=== PATIENT | female | born 1980 | race Caucasian/White ===

== ENCOUNTER 2022-03-29 13:12 | Outpatient (CLI) | payer OTHER, SELFPAY ==
[2022-03-29 12:33] LABS: Chloride* 104 mmol/L (96-114); Potassium* 4.4 mmol/L (3.6-5.1); Sodium* 139 mmol/L (135-149)
[2022-03-29 12:35] LABS: Cholesterol* 209 mg/dL (90-199); Creatinine* 0.6 mg/dL (0.5-1.5); Estimated Glomerular Filt Rate 116 ml/min
[2022-03-29 12:36] LABS: Blood Urea Nitrogen* 11 mg/dL (5-24); Carbon Dioxide* 29 mmol/L (20-32); Glucose* 86 mg/dL (60-115); Triglycerides* 101 mg/dL (40-149)
[2022-03-29 12:37] LABS: Calcium* 9.1 mg/dL (8.4-10.6); HDL Cholesterol* 65 mg/dL (>=50); LDL Cholesterol Calculated 124 mg/dL (<100)
== END 2022-03-29 13:13 | disposition home or self-care (01) ==
PROVIDERS: PCP Physician Assistant Medical; Visit Provider Physician Assistant Medical
DX: Z00.00 Encounter for general adult medical examination without abnormal findings (principal); E78.5 Hyperlipidemia, unspecified
CPT/HCPCS: 80048; 80061

== ENCOUNTER 2022-05-10 10:58 | Outpatient (CLI) | payer OTHER, SELFPAY ==
--- NOTE | 2022-05-10 11:00 | CRLHL7_ITS ---
For Patients: As a result of the Century Cures Act, medical imaging exams and procedure reports are released immediately into your electronic medical record. You may view this report before your referring provider. If you have questions, please contact your health care provider. INDICATION: Follow up a left-sided hydrosalpinx. Ovarian cysts. TECHNIQUE: Transabdominal and transvaginal pelvic ultrasound. COMPARISON: Pelvic ultrasound June 19, 2020. Correlation is made with an abdominopelvic CT May 22, 2020. FINDINGS: The uterus measures 7.2 x 4.8 x 6.2 cm. Normal endometrial stripe of 7 mm. No free pelvic fluid. Normal right ovary measuring 2.7 x 1.9 x 1.8 cm. Blood flow is documented in the right ovary. Normal sized left ovary measuring 3.3 x 2.1 x 2.8 cm. Dominant follicular cyst on the left measuring 1.6 x 1.6 x 1.9 cm likely physiologic. The left-sided hydrosalpinx seen previously is less evident although not absent. Prominent dilated blood vessel left adnexa nonspecific. IMPRESSION: 1. Less evident but still present left-sided hydrosalpinx. 2. Small follicular cyst left ovary. Normal uterus and right ovary. Dictated by Leonardo Evans MD @ 05/10/2022 11:55:53 AM (Electronically Signed)
== END 2022-05-10 10:59 | disposition home or self-care (01) ==
LOC: US 11:00
PROVIDERS: PCP Physician Assistant Medical; Visit Provider Physician Assistant Medical
DX: N70.11 Chronic salpingitis (principal); N83.202 Unspecified ovarian cyst, left side
CPT/HCPCS: 76830; 76856

== ENCOUNTER 2022-06-28 10:06 | Outpatient (CLI) | payer OTHER, SELFPAY ==
--- NOTE | 2022-06-28 10:15 | CRLHL7_ITS ---
For Patients: As a result of the Century Cures Act, medical imaging exams and procedure reports are released immediately into your electronic medical record. You may view this report before your referring provider. If you have questions, please contact your health care provider. BILATERAL DIGITAL SCREENING MAMMOGRAM WITH COMPUTER-AIDED DETECTION WITH TOMOSYNTHESIS CLINICAL HISTORY: Routine screening exam. COMPARISON: 06/19/2020 TECHNIQUE: Digital mammogram in CC and MLO projections including computer-aided detection (CAD) and tomosynthesis. BREAST COMPOSITION: The breasts are heterogeneously dense, which may obscure small masses. FINDINGS: RIGHT Breast: No suspicious findings. LEFT Breast: Multifocal groupings of microcalcifications are present within the lateral half of the breast, new from the prior study. Associated dense ill-defined tissue present in this location. IMPRESSION: LEFT breast calcifications/asymmetric densities. RECOMMENDATIONS: Spot compression magnification views of the calcifications in the LEFT breast in CC and ML projections. Open true lateral 2D LEFT breast also recommended in addition to spot compression CC/MLO. Ultrasound may also be recommended. BI-RADS Category 0: Incomplete: Need additional Imaging Evaluation and/or Prior Mammograms for Comparison [facility] will contact the patient for follow-up. A lay language report of this examination will be provided to the patient. Dictated by Leonidas Sands MD @ 06/28/2022 10:48:33 AM PT/Dictated by: Leonidas Sands MD @ 06/28/2022 10:48:00 AM (Electronically Signed)
== END 2022-06-28 10:07 | disposition home or self-care (01) ==
LOC: MAMMO 10:07
PROVIDERS: PCP Physician Assistant Medical; Visit Provider Physician Assistant Medical
DX: Z12.31 Encounter for screening mammogram for malignant neoplasm of breast (principal); R92.2 Inconclusive mammogram
CPT/HCPCS: 77063; 77067

== ENCOUNTER 2022-07-05 08:40 | Outpatient (CLI) | payer OTHER, SELFPAY ==
--- NOTE | 2022-07-05 08:45 | CRLHL7_ITS ---
For Patients: As a result of the Cures Act, medical imaging exams and procedure reports are released immediately into your electronic medical record. You may view this report before your referring provider. If you have questions, please contact your health care provider. LEFT DIAGNOSTIC DIGITAL MAMMOGRAM WITH COMPUTER-AIDED DETECTION AND TOMOSYNTHESIS LEFT BREAST ULTRASOUND CLINICAL HISTORY: LEFT breast microcalcifications, asymmetric breast tissue. COMPARISON: 06/19/2020 TECHNIQUE: Digital LEFT mammogram in 5 projections. Real-time ultrasound imaging of LEFT breast with imaging documentation. BREAST COMPOSITION: The breast is heterogeneously dense, which may obscure small masses. FINDINGS: Spot magnification CC and true lateral LEFT breast mammogram images submitted along with a true lateral 3D LEFT breast mammogram. Additional 3D spot-compression CC and MLO LEFT breast mammogram images of the lateral LEFT breast submitted. Innumerable foci clustered pleomorphic microcalcifications are present throughout the lateral half of the LEFT breast with associated asymmetric densities. However, there is no focal area of architectural distortion. No adenopathy. Targeted sonogram was performed of the lateral LEFT breast to assess for any dominant mass. Dense tissue is present without dominant mass. No adenopathy. IMPRESSION: Suspicious microcalcifications involving a large portion of the lateral half of the LEFT breast. RECOMMENDATION: Stereotactic biopsy. BI-RADS: Category 4. Suspicious Results and recommendations discussed with the patient. A lay language report of this examination will be provided to the patient. Dictated by Leonidas Sands MD @ 07/05/2022 9:54:57 AM CRL:mandy RD/Dictated by: Leonidas Sands MD @ 07/05/2022 9:54:00 AM (Electronically Signed)
--- NOTE | 2022-07-05 09:15 | CRLHL7_ITS ---
For Patients: As a result of the Cures Act, medical imaging exams and procedure reports are released immediately into your electronic medical record. You may view this report before your referring provider. If you have questions, please contact your health care provider. SEE LEFT DIAGNOSTIC MAMMOGRAM OF SAME DAY FOR COMBINED REPORT. CRL:mandy RD/Dictated by: Leonidas Sands MD @ 07/05/2022 9:55:00 AM (Electronically Signed)
== END 2022-07-05 08:41 | disposition home or self-care (01) ==
LOC: MAMMO 08:41
PROVIDERS: PCP Physician Assistant Medical; Visit Provider Physician Assistant Medical
DX: N63.20 Unspecified lump in the left breast, unspecified quadrant (principal); R92.8 Other abnormal and inconclusive findings on diagnostic imaging of breast; R92.2 Inconclusive mammogram
CPT/HCPCS: 76642; 77065; G0279

== ENCOUNTER 2023-05-06 08:29 | Outpatient (CLI) | payer BC, SELFPAY | END 2023-05-06 08:30 | disposition home or self-care (01) | LOC: NFLDREF 05-07 12:15 | PROVIDERS: PCP Physician Assistant Medical; Referring Provider Physician Assistant Medical; Visit Provider Physician Assistant Medical | DX: E78.5 Hyperlipidemia, unspecified (principal); Z13.29 Encounter for screening for other suspected endocrine disorder; Z13.1 Encounter for screening for diabetes mellitus | CPT/HCPCS: 80061; 82947; 84443 ==

== ENCOUNTER 2023-05-08 08:55 | Outpatient (CLI) | payer BC, SELFPAY ==
[2023-05-08 15:09] LABS: Chlamydia DNA Amplified* NOT DETECTED (No Detected); GC DNA Amplified* NOT DETECTED (No Detected)
== END 2023-05-08 08:56 | disposition home or self-care (01) ==
PROVIDERS: PCP Physician Assistant Medical; Visit Provider Physician Assistant Medical
DX: Z01.818 Encounter for other preprocedural examination (principal)
CPT/HCPCS: 87491; 87591

== ENCOUNTER 2023-06-27 12:52 | Outpatient (CLI) | payer BC, SELFPAY ==
--- NOTE | 2023-06-27 13:00 | US_ITS ---
Patient: EVAN COLLIER Facility:?[facility] Patient ID:?[id number] Site Patient ID:?[id number]. Site :?[id number] Study:?US-Pelvis PELVIS TA & TV-06/27/2023 1:38:23 PM Ordering Physician:?SIMON LESLIE Final Report: INDICATION: Ovarian cyst COMPARISON: none 05/10/2022 TECHNIQUE: 2D goins scale and color Doppler images were acquired of the pelvis using a transabdominal and transvaginal approach. FINDINGS: Sonographic images demonstrate a normal size and smooth outer contour of the uterus. Uterus measures 8.2 cm in length by 4.0 cm in AP diameter by 5.1 cm in transverse dimension. The myometrium has a normal uniform echotexture. The endometrial lining measures 8 mm in composite thickness. The right ovary measures 2.8 x 1.4 x 1.6 cm in size and the left ovary measures 3.7 x 1.9 x 2.1 cm. The ovaries demonstrate normal arterial and venous blood flow on color Doppler analysis. Left hydrosalpinx appears diminished compared to the prior study. There is a complex cystic structure within the left ovary which measures approximately 1.6 cm. A thickened vascular septation may be present within this lesion. IMPRESSION: Complex left ovarian cyst appears to be present measuring 1.6 cm with a possible thickened and vascular internal septum versus 2 separate cystic areas. Mild left hydrosalpinx is decreased compared to the prior study. Pelvic MRI versus follow- up ultrasound in 3 months recommended for further evaluation. Dictated by Leonidas Sands MD @ 06/30/2023 8:46:44 AM Signed by:?Leonidas Sands MD @06/30/2023 8:46:44 AM (Electronic Signature)
== END 2023-06-27 12:53 | disposition home or self-care (01) ==
LOC: US 12:52
PROVIDERS: PCP Physician Assistant Medical; Visit Provider Physician Assistant Medical
DX: N83.209 Unspecified ovarian cyst, unspecified side (principal); N83.202 Unspecified ovarian cyst, left side
CPT/HCPCS: 76830; 76856

== ENCOUNTER 2023-07-11 15:19 | Outpatient (CLI) | payer BC, SELFPAY ==
--- NOTE | 2023-07-11 15:30 | MR_ITS ---
Patient: EVAN COLLIER Facility:?[facility] Patient ID:?[id number] Site Patient ID:?[id number]. Site :?1980 Study:?MRI-Pelvis W/ and W/O Cont 20 CC DOATERM-07/11/2023 4:41:21 PM Ordering Physician:?SIMON LESLIE Final Report: INDICATION: Ovarian cyst. COMPARISON: Pelvic ultrasound dated 27 June 2023. Pelvic ultrasound dated [address] scan of the abdomen and pelvis dated 22 May 2020. TECHNIQUE: Pelvic MRI with T1, T2, and postcontrast images. Intravenous gadolinium administered. Findings : Probable scar in the anterior aspect of the lower uterine segment. The uterus is otherwise unremarkable. Normal appearance of the right ovary which measures 2.7 x 1.7 x 1.3 cm. Tortuous fluid-filled tubular right adnexal structure measuring 1.0 cm in diameter. A few small follicles in the left ovary with the left ovary measuring 2.2 x 1.7 x 1.5 cm. No other pelvic masses. No adenopathy. No other bony or soft tissue abnormalities identified. Impression : 1. Left-sided hydrosalpinx is unchanged since 2020. 2. No abnormalities of the ovaries identified. Dictated by Danny Ortega MD @ 07/13/2023 12:52:44 PM Signed by:?Danny Ortega MD @07/13/2023 12:52:44 PM (Electronic Signature)
== END 2023-07-11 15:20 | disposition home or self-care (01) ==
LOC: MRI 15:19
PROVIDERS: PCP Physician Assistant Medical; Visit Provider Physician Assistant Medical
DX: N83.209 Unspecified ovarian cyst, unspecified side (principal)
CPT/HCPCS: 72197; A9575